=== PATIENT | male | born 2000 | race Caucasian/White ===

== ENCOUNTER 2024-05-19 03:31 | Emergency (ER) | payer BC ==
[~2024-05-19] VITALS: Ht 172.7 cm; Wt 210.0 kg
[2024-05-19 03:35] VITALS: BP 145/88; PULSE 105; RESP 17; TEMP 98.4; O2SAT 98
[2024-05-19 04:22] LABS: CLARITY,URINE CLEAR (Clear); COLOR,URINE YELLOW (Yellow); GLUCOSE, URINE NEGATIVE (Neg); PROTEIN,URINE NEGATIVE (Neg); UA COLLECTION TYPE CLN CATCH MIDSTREAM
[2024-05-19 04:23] LABS: BILIRUBIN,URINE NEGATIVE (Neg); KETONES,URINE NEGATIVE (Neg); LEUKOCYTE ESTERASE ,URINE NEGATIVE (Neg); NITRITES, URINE NEGATIVE (Neg); OCCULT BLOOD,URINE NEGATIVE (Neg); UROBILINOGEN,URINE 0.2 E.U/dL (0.2-1.0)
== END 2024-05-19 05:47 | disposition home or self-care (01) ==
LOC: ER 03:34
DX: R30.0 Dysuria (principal)
CPT/HCPCS: 81003; 99283

== ENCOUNTER 2024-05-23 07:29 | Emergency (ER) | payer BC ==
[~2024-05-23] VITALS: Ht 172.7 cm; Wt 105.0 kg
[2024-05-23 09:37] VITALS: BP 146/86; PULSE 92; RESP 16; TEMP 98.8; O2SAT 97
== END 2024-05-23 09:39 | disposition home or self-care (01) ==
LOC: ER 07:30
DX: S90.121A Contusion of right lesser toe(s) without damage to nail, initial encounter (principal); X58.XXXA Exposure to other specified factors, initial encounter; Y93.01 Activity, walking, marching and hiking; Y92.89 Other specified places as the place of occurrence of the external cause; Y99.8 Other external cause status
CPT/HCPCS: 73660; 99283

== ENCOUNTER 2024-09-09 10:18 | Outpatient (CLI) | payer BC | END 2024-09-09 23:59 | disposition home or self-care (01) | LOC: RAD 10:18 | PROVIDERS: ATTEND Family Medicine | DX: N45.1 Epididymitis (principal) | CPT/HCPCS: 87088 ==

== ENCOUNTER 2024-09-10 14:34 | Outpatient (CLI) | payer BC ==
--- NOTE | 2024-09-10 16:09 | RADIOLOGY REPORT ---
ULTRASOUND OF SCROTUM AND CONTENTS. INDICATION: EPIDIDYMITIS COMPARISON: None TECHNIQUE: Multiple real-time grayscale sonographic and color and duplex Doppler images of the scrotu m and its contents were obtained. FINDINGS: The right testicle measures 4.4 x 2.1 x 2.8 cm. The left testicle measures 4.4 x 2.0 x 2.8 cm. Both testicles demonstrate homogeneous echotexture without evidence of focal lesions. The right epididymal head measures 1.1 cm. The left epididymal head measures 0.9 cm. Subsequent color and duplex Doppler interrogation of the testes demonstrated symmetric normal vascula r flow to both testicles. No focal areas of hyperemia were seen. Bilateral varicocele. Small right hydrocele. IMPRESSION: Bilateral varicocele. Small right hydrocele.
== END 2024-09-10 23:59 | disposition home or self-care (01) ==
LOC: RAD 14:34
PROVIDERS: ATTEND Family Medicine
DX: N43.3 Hydrocele, unspecified (principal); N45.1 Epididymitis; I86.1 Scrotal varices
CPT/HCPCS: 76870; 93976